=== PATIENT | male | born 1985 | race Caucasian/White ===

== ENCOUNTER 2017-01-29 18:12 | Emergency (ER) | payer OTHER ==
[~2017-01-29] VITALS: Ht 180.3 cm; Wt 89.0 kg
[~2017-01-29 18:12] MED LIST: ATARAX,VISTARIL50 MG PO; METFORMIN HCL500 MG PO
[2017-01-29 19:00] LABS: HEMATOCRIT 48.5 % (38.0-50.0); MCH 26.1 PG (29.0-34.0); MCHC 33.2 G/DL (30.0-36.0); MCV 78.6 FL (86-99); MEAN PLAT.VOLUME 9.3 uM^3 (9.0-12.4); PLATELET COUNT 286 K/uL (156-360); RBC DIS.WIDTH-CV 13.3 % (11.8-14.6); RBC DIS.WIDTH-SD 37.4 % (39-53); RED BLOOD COUNT 6.17 M/uL (4.00-5.50); WHITE BLOOD COUNT 8.1 K/uL (4.1-10.2)
[2017-01-29] MEDS ORDERED: METFORMIN HCL500 M1 PO (19:03)
[2017-01-29] MEDS ORDERED: ALOGLIPTIN25 MG PO (19:04)
[2017-01-29] MEDS ORDERED: ERGOCALCIF50000 UNIT PO (19:04)
[2017-01-29] MEDS ORDERED: SIMVASTATIN20 MG PO (19:05)
[2017-01-29] MEDS ORDERED: CLOBETASOL PROP60 GM TP (19:05)
[2017-01-29 19:09] LABS: CHLORIDE 107 mEq/L (99-109); POTASSIUM 3.9 mEq/L (3.7-5.4); SODIUM 139 mEq/L (136-147)
[2017-01-29 19:11] LABS: GLUCOSE 127 mg/dL (70-99)
[2017-01-29 19:12] LABS: ANION GAP 11 MEQ/L (2-14)
[2017-01-29 19:15] LABS: GFR ESTIMATE (CALCULATED) > 59 mL/min/
[2017-01-29 19:16] LABS: UREA NITROGEN (BUN) 13 mg/dL (9-23)
[2017-01-29] MEDS ORDERED: KEFLEX500 MG PO (20:02)
[2017-01-29 20:15] VITALS: BP 132/85
== END 2017-01-29 20:15 | disposition home or self-care (01) ==
LOC: EME 18:12
PROVIDERS: Physician Assistant
DX: E11.622 Type 2 diabetes mellitus with other skin ulcer (principal); L97.929 Non-pressure chronic ulcer of unspecified part of left lower leg with unspecified severity; R20.0 Anesthesia of skin; W19.XXXA Unspecified fall, initial encounter
CPT/HCPCS: 73590; 80048; 85027; 87070; 87075; 87077; 87147; 87186; 87205; 93971; 99281; 99283